=== PATIENT | male | born 1980 | race Caucasian/White ===

== ENCOUNTER 2025-03-02 14:17 | Emergency (ER) | payer BC, SELFPAY ==
--- OUTSIDE RECORDS SUMMARY | 2025-03-02 14:19 | XMS_ITS | Clinical Summary ---
Author Organization [facility] Address [address] [place] [id number] Care Team Providers Care Grades 1 Thru 6 Home Teacher Name Role Phone Jonh Goodwin MD Primary Care Provider [phone] Allergies No known active allergies Medications MedicationSigDispense QuantityRefillsLast FilledStart DateEnd DateStatus cholecalciferol (VITAMIN D) 2,000 unit capsule Indications:Diabetes mellitus type I (HC)Take 1 capsule by mouth once daily.0 02/23/2011ctive blood-glucose meter Indications:Type 1 diabetes mellitus without complication (HC)Dispense meter, test strips, lancets covered by pt ins. E11.65 IDDM type II, uncontrolled - Test 6 times/day. Reason: High A1C 1 Device 07/03/2016Active FreeStyle Aida 2 [place] Indications:Type 1 diabetes mellitus without complication (HC)To be used to read blood sugars per closer on's directions. 1 Each 03/31/2021ctive Contour Next Test Strips strip Indications:Type 1 diabetes mellitus without complication (HC)USE TO TEST SIX TIMES DAILY DIRECTED 600 Each ctive pen needle, diabetic (BD Insulin Pen Needle UF) 31 gauge x 5/16 Indications:Type 1 diabetes mellitus without complication (HC)As directed. For administering insulin at home.please use correct needle for his pen 100 Each 3Active FreeStyle Aida 2 Plus Sensor for continuous blood glucose monitor (CGM) Indications:Type 1 diabetes mellitus without complications (HC)To be used to read blood sugars. Change sensor every 14 days as directed. 6 Each 5Active FreeStyle Aida 2 Sensor Indications:Type 1 diabetes mellitus without complications (HC)To be used to read blood sugars per closer on's directions. 6 Each 5Active Lantus Solostar U-100 Insulin 100 unit/mL (3 mL) pen Indications:Type 1 diabetes mellitus without complications (HC)Inject 32 units subcutaneous before bedtime. Product desired: LANTUS SOLOSTAR 30 mL 5Active insulin aspart (U-100) (NOVOLOG FLEXPEN) 100 unit/mL (3 mL) pen Indications:Type 1 diabetes mellitus without complications (HC)INJECT 5 TO 8 UNITS THREE TIMES A DAY WITH MEALS. MAX OF 30 UNITS PER DAY DIRECTED 30 mL 5Active PARoxetine (PAXIL) 10 mg tablet Indications:Agoraphobia with panic disorderTake 1 Tablet (10 mg) by mouth once daily in the morning. 90 Tablet 5Active LORazepam (ATIVAN) 0.5 mg tab Indications:Agoraphobia with panic disorderTAKE ONE TABLET (0.5 MG) BY MOUTH EVERY 6 HOURS NEEDED FOR ANXIETY . 15 Tablet 5Active rosuvastatin (CRESTOR) 10 mg tablet Indications:Hyperlipidemia, unspecified hyperlipidemia typeTake 1 Tablet (10 mg) by mouth at bedtime. 90 Tablet 5Active traZODone (DESYREL) 50 mg tablet Indications:Insomnia, idiopathicTake 1 Tablet (50 mg) by mouth at bedtime. 90 Tablet 5Active traZODone (DESYREL) 50 mg tablet Indications:Insomnia, idiopathicTake 1 Tablet (50 mg) by mouth at bedtime. 90 Tablet Discontinued(Reorder (E-cancel not sent)) insulin aspart, U-100, (NovoLOG Flexpen U-100 Insulin) 100 unit/mL (3 mL) pen Indications:Type 1 diabetes mellitus without complication (HC)INJECT 6 TO 7 UNITS UNDER THE SKIN THREE TIMES A DAY WITH MEALS. MAX OF 20 UNITS PER DAY DIRECTED 30 mL Discontinued LORazepam (ATIVAN) 0.5 mg tab Indications:Agoraphobia with panic disorderTAKE ONE TABLET (0.5 MG) BY MOUTH EVERY 6 HOURS NEEDED FOR ANXIETY . 15 Tablet Discontinued(Reorder (E-cancel not sent)) FreeStyle Aida 2 Sensor Indications:Type 1 diabetes mellitus without complication (HC)USE TO READ BLOOD SUGARS PER CHIEF OF PRODUCTION'S DIRECTIONS REPLACING EVERY 14 DAYS DIRECTED 6 Each /[id number]/Discontinued(Other - add note to specify (E-cancel not sent)) Lantus Solostar U-100 Insulin 100 unit/mL (3 mL) pen Indications:Type 1 diabetes mellitus without complication (HC)INJECT 27 UNITS SUBCUTANEOUS BEFORE BEDTIME 60 mL Discontinued(*Medication adjustment) PARoxetine (PAXIL) 10 mg tablet Indications:Agoraphobia with panic disorderTake 1 Tablet (10 mg) by mouth once daily in the morning. 90 Tablet Discontinued rosuvastatin (CRESTOR) 10 mg tablet Indications:Hyperlipidemia, unspecified hyperlipidemia typeTake 1 Tablet (10 mg) by mouth at bedtime. 90 Tablet Discontinued(Reorder (E-cancel not sent)) insulin aspart (U-100) (NOVOLOG FLEXPEN) 100 unit/mL (3 mL) pen Indications:Type 1 diabetes mellitus without complications (HC)INJECT 6 TO 7 UNITS UNDER THE SKIN THREE TIMES A DAY WITH MEALS. MAX OF 20 UNITS PER DAY DIRECTED 30 mL Discontinued(*Medication adjustment) PARoxetine (PAXIL) 10 mg tablet Indications:Agoraphobia with panic disorderTAKE ONE TABLET (10 MG) BY MOUTH ONCE DAILY IN THE MORNING 30 Tablet Discontinued(Reorder (E-cancel not sent)) Active Problems ProblemNoted DateDiagnosed DateVitamin D otdctzbzqi64/08/2018Diabetes mellitus type I09/29/2009goraphobia with panic rtgdcqyj22/19/2010 Overview (02/07/2024): Treated with paroxetine and lorazepam. Previously used frequent lorazepam. 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 25 pills every 3 months. Encounters DateTypeDepartmentCare UikzKboasycccfg23/18/2025 9:50 AM CSTOffice Visit [facility] [address] [place] [address] Jonh Goodwin MD Wuacuern71/18/0558Dbxndq38/29/2025Refill [facility] [address] [place] [address] Jonh Goodwin MD Refill Request (Paroxetine)02/05/2025Telephone [facility] [address] [place] [address] Jonh Goodwin MD Questions (FreeStyle Aida 2 Plus Sensor for continuous blood glucose monitor (CGM))02/02/2025Refill [facility] [address] [place] [address] Jonh Goodwin MD Refill Request (Freestyle Aida 2 Sensor)01/30/2025Refill [facility] [address] [place] [address] Jonh Goodwin MD Refill Request (Insulin Aspart (U-100))from Last 3 Months Immunizations ImmunizationAdministration DatesNext DueCOVID-19 vaccine (E-Sign 30mcg/0.3mL) MD EMERITAV03/31/2021,07/29/2020,07/08/2020,1530NTlM37/08/1982 Hepatitis B (Adult)02/28/2025,09/09/2023,01/23/2014Influenza, IIV3 (Age >=3 years)12/30/2009MMR11/11/1992,02/18/1982Polio Virus, Rttwtagjrxz22/08/1982Td (Age >=7 Years)09/25/2009,08/26/1988Tdap04/06/2019 Family History Medical HistoryRelationNameCommentsOtherMaternal Grandmotherautoimmune disease RelationNameStatusCommentsMaternal Grandmother Social History Tobacco UseTypesPacks/DayYears UsedDateSmoking Tobacco: FormerSmokeless Tobacco: Never Tobacco Cessation:Counseling Given: Yes Alcohol UseStandard Drinks/WeekCommentsNo0 (1 standard drink = 0.6 oz pure alcohol)none since gnuveal9658PBM-8YvajeqGwhp RecordedPHQ-2 TOTAL SCORE1 02/28/2025Social ConnectionsAnswerDate RecordedDo you often feel lonely or isolated from those around you?lcohol UseAnswerDate RecordedHow often do you have a drink containing alcohol?verage Number of Drinks Not on file02/28/2025Frequency of Binge DrinkingNot on file02/28/2025Financial Resource StrainAnswerDate RecordedDifficulty of Paying Living Expenses3 11/28/2023ifficulty of Paying Living ExpensesNot on file11/28/2023Food InsecurityAnswerDate RecordedDo you worry your food will run out before you are able to buy more?Transportation NeedsAnswerDate RecordedDoes lack of transportation keep you from medical appointments?oes lack of transportation keep you from work, meetings or getting things that you need?1 11/28/2023Housing StabilityAnswerDate RecordedWhat is your housing situation today?UtilitiesAnswerDate RecordedDo you have trouble paying for utilities (for example, heat, electricity, water, phone)?Sex and Gender InformationValueDate RecordedSex Assigned at BirthNot on fileLegal Sex Male03/27/2012 5:25 AM CSTGender IdentityNot on fileSexual OrientationNot on file Last Filed Vital Signs Vital SignReadingTime TakenCommentsBlood Oddemlkp918/1215602/28/2025 9:56 AM CHILDREN'S ENTERTAINER Jtlri231402/28/2025 9:56 AM VMTPkfktyywgor13.4 ??C (97.6 ??F)07/11/2020 2:31 PM CDTRespiratory Fbkg4639 10:34 AM CDTOxygen Axomflrhtu59%02/28/2025 9:54 AM CSTInhaled Oxygen Concentration--Vwgowf39.4 kg (181 lb 9.6 oz)02/28/2025 9:54 AM DPSUhzzos563.5 cm (5' 11.06)02/28/2025 9:54 AM CSTBody Mass Index25.28 02/28/2025 9:54 AM CHILDREN'S ENTERTAINER Plan of Treatment DateTypeDepartmentCare Team (Latest Contact Info)Qtkbjwjosee57/19/2026 9:00 AM CDTOffice Visit [facility] [address] [place] [address] Jonh Goodwin MD [address] [place] [address] Health MaintenanceDue DateLast DoneCommentsPneumococcal series for age 6-49 (1 of 2 - PCV)07/17/1999HPV series for age 9-45 (1 - 3-dose SCDM series)07/17/2007 COVID-19 vaccine series ( season), 07/29/2020, 07/08/2020, Additional history existsInfluenza Vaccine (#1) BMI (ht and wt on same day) for age 18+6105/01/2024, 03/31/2021, 03/25/2020, Additional history existsDepression screening for age 12+02/28/2026 02/28/2025, 02/07/2024, 12/01/2021, Additional history existsTetanus booster , 06/08/2011 (Completed outside of [facility]), 09/25/2009, Additional history existsLipids for age 35-441, 02/07/2024, 11/26/2022, Additional history existsHepatitis C screening for age 18-79 Gzrbvekky31/01/2022HIV for age 15-90Xbufispfj45/15/2023Hepatitis B series for 19+Mthjlnaxc86/18/2025, 09/09/2023, 01/23/2014 Procedures Procedure NamePriorityDate/TimeAssociated DiagnosisCommentsURINE ALBUMIN TO CREATININE RATIO, IBLLDVOssemae90/18/2025 9:46 AM CHILDREN'S ENTERTAINER Type 1 diabetes mellitus without complications (HC) LIPID QIELBNnrflmt25/18/2025 9:46 AM CHILDREN'S ENTERTAINER Hyperlipidemia, unspecified hyperlipidemia type BASIC METABOLIC CKLDHSrxxunj19/18/2025 9:46 AM CHILDREN'S ENTERTAINER Type 1 diabetes mellitus without complications (HC) ANTI HIV 1/2Add On11/26/2022 1:56 PM CDT Screening for HIV (human immunodeficiency virus) ANTI HCVAdd On01/12/2022 1:52 PM CDT Need for hepatitis C screening test from Last 3 Months or Most Recently Relevant to Health Maintenance Results * URINE ALBUMIN TO CREATININE RATIO, RANDOM (02/28/2025 9:46 AM CHILDREN'S ENTERTAINER)Component ValueRef RangeTest MethodAnalysis TimePerformed AtPathologist Signature ALBUMIN, URINE0.9See Note: mg/dL03/01/2025 12:24 PM [email or web address] DIAGNOSTICS Comment: Reference Range: Reference Range Not established CREATININE, RANDOM AMHLZ8381 - 320 mg/dL03/01/2025 12:24 PM CSTQUEST DIAGNOSTICS ALBUMIN/CREATININE RATIO, RANDOM URINE10<30 mg/g creat105/02/2024 12:24 PM CHILDREN'S ENTERTAINER [email or web address] DIAGNOSTICSComment: The ADA defines abnormalities in albumin excretion as follows: Albuminuria Category ?Result (mg/g creatinine) Normal to Mildly increased <30 Moderately increased ? 30-299 Severely increased > OR = 300 The ADA recommends that at least two of three specimens collected within a 3-6 month period be abnormal before considering a patient to be within a diagnostic category. Specimen (Source)Anatomical Location / LateralityCollection Method / Volume Collection TimeReceived TimeUrineURINE SPECIMEN / UnknownNon-Blood / Unknown 02/28/2025 9:46 AM CST02/28/2025 9:46 AM CHILDREN'S ENTERTAINER Narrative Authorizing ProviderResult TypeResult StatusJonh Goodwin MDURINEFinal ResultPerforming OrganizationAddressCity/State/ZIP CodePhone Number [facility] [address] [place] [address], * (ABNORMAL) LIPID PANEL (02/28/2025 9:46 AM CHILDREN'S ENTERTAINER)ComponentValueRef RangeTest MethodAnalysis TimePerformed AtPathologist SignatureCHOLESTEROL, PLRLN068<200 mg/dL03/01/2025 3:07 AM CSTQUEST BMMVPMHEYHTOEMPPLNNHMTDM156(H)<150 mg/dL 03/01/2025 3:07 AM CSTQUEST DIAGNOSTICSComment: If a non-fasting specimen was collected, consider repeat triglyceride testing on a fasting specimen if clinically indicated. Caleb et al. J. of Clin. Lipidol. 2015;9:129-169. There is increased risk of pancreatitis when the triglyceride concentration is very high (> or = 500 mg/dL, especially if > or = 1000 mg/dL). Caleb et al. J. of Clin. Lipidol. 2015;9:129-169. HDL TMETNSSNMTU03> OR = 40 mg/dL03/01/2025 3:07 AM CSTQUEST DIAGNOSTICSNON HDL EMOSJVDBTIF570(H)<130 mg/dL (calc)03/01/2025 3:07 AM CST[facility] Comment: For patients with diabetes plus 1 major ASCVD risk factor, treating to a non-HDL-C goal of <100 mg/dL (LDL-C of <70 mg/dL) is considered a therapeutic option. CHOL/HDLC RATIO4.7<5.0 (calc)03/01/2025 3:07 AM CSTQUEST DIAGNOSTICS LDL-CHOLESTEROLSEE NOTEmg/dL (calc)03/01/2025 3:07 AM CST[facility] Comment: LDL cholesterol not calculated. Triglyceride levels greater than 400 mg/dL invalidate calculated LDL results. Reference range: <100 Desirable range <100 mg/dL for primary prevention; <70 mg/dL for patients with CHD or diabetic patients with > or = 2 CHD risk factors. LDL-C is now calculated using the Rebeca calculation, which is a validated novel method providing better accuracy than the Friedewald equation in the estimation of LDL-C. Boubacar ALVARES et al. HEATH. 2013;310(19): 7220-6018 (http://education.[employer]/faq/GNS896) Specimen (Source)Anatomical Location / LateralityCollection Method / Volume Collection TimeReceived TimeBloodBLOOD SPECIMEN / UnknownQuest Collect / Unknown 02/28/2025 9:46 AM CST02/28/2025 9:46 AM CHILDREN'S ENTERTAINER Narrative Authorizing ProviderResult TypeResult StatusJonh Chacho Goodwin MDCHEMISTRYFinal ResultPerforming OrganizationAddressCity/State/ZIP CodePhone Number [facility] [address] [place] [address], * (ABNORMAL) BASIC METABOLIC PANEL (02/28/2025 9:46 AM CHILDREN'S ENTERTAINER)ComponentValueRef RangeTest MethodAnalysis TimePerformed AtPathologist BbmrarczuKZJDMV542315 - 146 mmol/L105/02/2024 3:07 AM CSTQUEST DIAGNOSTICSPOTASSIUM4.43.5 - 5.3 mmol/L 03/01/2025 3:07 AM CSTQUEST DIAGNOSTICSCARBON HHKXEGP6949 - 32 mmol/L 03/01/2025 3:07 AM CSTQUEST JXLIZELOEZSKDQVLAY079(H)65 - 99 mg/dL03/01/2025 3:07 AM CSTQUEST DIAGNOSTICSComment: ? Fasting reference interval For someone without known diabetes, a glucose value >125 mg/dL indicates that they may have diabetes and this should be confirmed with a follow-up test. CALCIUM9.58.6 - 10.3 mg/dL03/01/2025 3:07 AM CSTQUEST DIAGNOSTICSCREATININE0.89 0.60 - 1.29 mg/dL03/01/2025 3:07 AM CSTQUEST DIAGNOSTICSBUN/CREATININE RATIOSEE NOTE:6 - 22 (calc)03/01/2025 3:07 AM CSTQUEST DIAGNOSTICSComment: ?? Not Reported: BUN and Creatinine are within ?? reference range. ? UNRZ299> OR = 60 mL/min/1.32b02503/01/2025 3:07 AM CSTQUEST DIAGNOSTICSUREA NITROGEN (BUN)97 - 25 mg/dL03/01/2025 3:07 AM CSTQUEST DIAGNOSTICSELECTROLYTE MSPNLIY20 - 17 mmol/L (calc)03/01/2025 3:07 AM CSTQUEST SURADSPQDJJJKDCZHMZ93175 - 110 mmol/L105/02/2024 3:07 AM CSTQUEST DIAGNOSTICSSpecimen (Source)Anatomical Location / LateralityCollection Method / VolumeCollection TimeReceived TimeBlood BLOOD SPECIMEN / UnknownQuest Collect / Cwasvbv8502/28/2025 9:46 AM CST02/28/2025 9:46 AM CHILDREN'S ENTERTAINER Narrative Authorizing ProviderResult TypeResult StatusJonh Goodwin MDCHEMISTRYFinal ResultPerforming OrganizationAddressCity/State/ZIP CodePhone Number [facility] [address] [address], * ANTI HIV 1/2 [86337.0] (11/26/2022 1:56 PM CDT)ComponentValueRef RangeTest MethodAnalysis TimePerformed AtPathologist SignatureHIV-1/HIV-2 SCREEN Dap-IrsnrgkfBuw-Kspiulye88/16/2023 4:39 AM CDBEACHAM MEMORIAL HOSPITALCENTRAL LABORATORYComment:HIV-1 p24 and HIV-1/HIV-2 Ab Not Detected.Specimen (Source) Anatomical Location / LateralityCollection Method / VolumeCollection Time Received TimeBloodBLOOD SPECIMEN / UnknownVenipuncture / Dlnczuh1111/26/2022 1:56 PM CDT11/26/2022 1:58 PM CDT Narrative Authorizing ProviderResult TypeResult StatusJonh Goodwin [facility] OUTSFinny ResultPerforming OrganizationAddressty/State/ZIP CodePhone Number [facility] [address] * ANTI HCV (01/12/2022 1:52 PM CDT)ComponentValueRef RangeTest MethodAnalysis TimePerformed AtPathologist SignatureHEPATITIS C ANTIBODYNon-Reactive Non-Twrvnoll85/02/2022 12:59 PM CDBEACHAM MEMORIAL HOSPITALCENTRAL LABORATORY Comment:Antibodies to HCV not detected; does not exclude the possibility of exposure to HCV.Specimen (Source)Anatomical Location / LateralityCollection Method / VolumeCollection TimeReceived TimeBloodBLOOD SPECIMEN / Unknown Venipuncture / Xspoavs6901/12/2022 1:52 PM CDT103/14/2021 1:54 PM CDT Narrative Authorizing ProviderResult TypeResult StatusJonh Goodwin [facility] OUTSFinal ResultPerforming OrganizationAddressCity/State/ZIP CodePhone Number [facility] [address] [place] [address], from Last 3 Months or Most Recently Relevant to Health Maintenance Insurance Care Teams Team MemberRelationshipSpecialtyStart DateEnd Date Jonh Goodwin MD [facility] [place] [address] PCP - GeneralFamily Nvysuwwa70/20/15
[2025-03-02 14:20] VITALS: BP 161/109; PULSE 98; RESP 18; TEMP 36.5; O2SAT 98; BMI 25.1
--- NOTE | 2025-03-02 14:37 | ED.GENADULT ---
HPI - General Adult General Date Seen: 03/02/25 Chief complaint: Hypertension Stated complaint: High Blood Pressure Time Seen by Provider: 03/02/25 14:35 History of Present Illness HPI narrative: 44-year-old gentleman with a history of diabetes (on Lantus 32 units q.h.s. and NovoLog 5-8 units with each meal, t.i.d.) presenting to the ER today concern with high blood pressure. He also has history of anxiety (on Paxil) He does not have a formal diagnosis of high blood pressure but he was seen in the primary care clinic at [facility], by Dr. Goodwin 2 days ago on 02/28. At that visit blood pressure was 160/97. Per Dr. Goodwin notes, hypertension was noted but attributed to his life stress. Patient did have labs including normal BUN and creatinine. He also had elevated triglycerides and lipid screening. Patient notes that he did general was feeling okay up until is visit on . He does note a little bit more fatigue and difficulty wake up in the morning but no other headaches, chest pain, blurry vision, trouble breathing, peripheral edema, stroke symptoms. Ever since having his blood pressure measured the of the day he has been more worried about it. He has been monitoring it carefully at home. He measured his blood pressure several times last night. First blood pressure reading she gave him a systolic of 175. He rejected again about an hour later and the systolic was in the 180s, and he then rechecked of 3rd time in the systolic in gone up into the 190s. At work today (he works at [employer]) he had 1 of the nurses check his blood pressure and was apparently 200 over something (He does not remember the diastolic). His nurse told him come here. He is not having any headache. No blurry vision or vision loss. No swelling in his legs. No trouble breathing. No cough. No chest pain. No numbness or weakness or tingling in his arms or legs. Related Data Home Medications ?Medication ?Instructions ?Recorded ?Confirmed insulin aspart U-100 100 unit/mL subcut 03/02/25 (3 mL) subcutaneous pen insulin glargine 100 unit/mL (3 unit subcut 03/02/25 mL) subcutaneous pen (Lantus Solostar U-100 Insulin) paroxetine HCl 10 mg tablet 10 mg PO DAILY 03/02/25 03/02/25 rosuvastatin 10 mg tablet 10 mg PO QPM 03/02/25 03/02/25 Previous Rx's ?Medication ?Instructions ?Recorded lisinopril 20 mg tablet 20 mg PO DAILY #14 tabs 03/02/25 Allergies Allergy/AdvReac Type Severity Reaction Status Date / Time No Known Drug Allergies Allergy Verified 03/02/25 14:25 [facility] Social History Smoking Status: Former smoker How often do you have a drink containing alcohol: never AUDIT-C Alcohol total score: 0 Non-prescribed substance use: marijuana (any form) Exam Narrative: Exam Narrative: Constitutional: Appears well-developed and well-nourished. Alert. Conversant. Non toxic. HENT: Head: Atraumatic. Nose: Nose normal. Mouth/Throat: Oral mucosa is clear and moist. no trismus. Pharynx normal. Tonsils symmetric. No tonsillar enlargement, erythema, or exudate. Eyes: Conjunctivae normal. EOM normal. Pupils equal, round, and reactive to light. No scleral icterus. Neck: Normal range of motion. Neck supple. No tracheal deviation present. Cardiovascular: Normal rate, regular rhythm. No gallop. No friction rub. No murmur heard. Symmetric radial artery pulses Pulmonary/Chest: Effort normal. No stridor. No respiratory distress. No wheezes. No rales. No rhonchi . No tenderness. Abdominal: Soft. Bowel sounds normal. No distension. No mass. No tenderness. No rebound. No guarding. Musculoskeletal: RUE: Normal range of motion. No tenderness. No deformity LUE: Normal range of motion. No tenderness. No deformity RLE: Normal range of motion. No edema. No tenderness. No deformity LLE: Normal range of motion. No edema. No tenderness. No deformity Lymph: No cervical adenopathy. Neurological: Alert and oriented to person, place, and time. Normal strength. CN II-VII intact. No sensory deficit. GCS eye subscore is 4. GCS verbal subscore is 5. GCS motor subscore is 6. Normal coordination Skin: Skin is warm and dry. No rash noted. No pallor. Normal capillary refill. Psychiatric: Normal mood. Polite. He does endorse feeling nervous about his blood pressure. Normal affect. Const: Vital Signs, click to edit/add: Vital Signs - 24 hr 03/02/25 14:20 03/02/25 15:39 03/02/25 16:39 Temperature 97.7 F Pulse Rate [Pulse Oximeter] 98 79 Respiratory Rate 18 Blood Pressure [Ri ght Upper Arm] 161/109 H 173/105 H 177/99 H Pulse Oximetry 98 Oxygen Delivery Me thod Room Air Course Vital Signs Vital signs: Initial Vital Signs Temperature 97.7 F 03/02/25 14:20 Temperature Source Temporal Artery Scan 03/02/25 14:20 Pulse Rate 98 03/02/25 14:20 Respiratory Rate 18 03/02/25 14:20 Blood Pressure 161/109 H 03/02/25 14:20 Blood Pressure Mean 126 H 03/02/25 14:20 Blood Pressure Position Sitting 03/02/25 14:20 Pulse Oximetry 98 03/02/25 14:20 Oxygen Delivery Method Room Air 03/02/25 14:20 Vital Signs Temperature 97.7 F 03/02/25 14:20 Pulse Rate 98 03/02/25 14:20 Respiratory Rate 18 03/02/25 14:20 Blood Pressure 161/109 H 03/02/25 14:20 Pulse Oximetry 98 03/02/25 14:20 Oxygen Delivery Method Room Air 03/02/25 14:20 Temperature 97.7 F 03/02/25 14:20 Pulse Rate 79 03/02/25 15:39 Respiratory Rate 18 03/02/25 14:20 Blood Pressure 177/99 H 03/02/25 16:39 Pulse Oximetry 98 03/02/25 14:20 Oxygen Delivery Method Room Air 03/02/25 14:20 Medications Administered Medications: Discontinued Medications Generic Name Dose Route Start Last Admin Trade Name Ripq PRN Reason Stop Dose Admin Lisinopril 20 mg 03/02/25 16:31 03/02/25 16:39 Lisinopril 20 Mg Tablet PO 03/02/25 16:32 20 mg ONCE ONE Administration Medical Decision Making MDM Narrative Medical decision making narrative: This patient presents for evaluation of elevated blood pressure. He does not have any known history of hypertension but did have blood pressure readings elevated his PCP visit 2 days ago. He was checking his blood pressure lot last night and again asked his nurses at his employer to check it today. His nurses today is job noted his blood pressure was over 200 systolic and told to come immediately to the ER with concern for stroke. He is not actually having any stroke symptoms. No concerning symptoms of chest pain , severe headache, neurologic deficits. The workup here is negative and the patient does not have any clinical, laboratory, ecg or historical signs of end-organ dysfunction. There is no signs of hypertensive emergency or urgency. Supportive outpatient management is therefore indicated with close follow-up of primary care physician. Given data obtained here in ED, will initiate lisinopril 20 mg daily for therapy at this time and encouraged serial blood pressure monitoring at home to aid primary in decision making regarding hypertension. He will follow-up with his primary care provider the [facility] within 1-2 weeks. We discussed that there is low ,but not 0 risk ,that he could develop and organ damage and if he does develop any chest pain, stroke symptoms, or other concerns, he will return to the ER immediately. Lab Data Labs: Lab Results 03/02/25 Range/Units 15:10 POC Troponin I High Sensi 4.9 (2.9-28.0) pg/mL ECG Data Attestation: I personally reviewed and interpreted this ECG as follows: Interpretation: Normal sinus rhythm Rate 71 LA interval 152 Normal QRS axis. No pathologic Q-waves No ST segment elevation or depression QTC 378, QTC 410 Discharge Plan Discharge Clinical Impression: Hypertension Patient Disposition: Home, Self-Care Condition: Stable Instructions: Hypertension (ED) Additional Instructions: As we discussed, please monitor your blood pressure once per day and keep a record. Follow-up with your doctor the [facility] within the next 5-10 days for and a recheck. Your doctor may need to make adjustments to your blood pressure medications to help bring it down to the goal. If you have worsening symptoms such as chest pain, trouble breathing, severe headache, blurry vision or vision loss, numbness or weakness in your arms and legs, numbness or droopiness in your face, swelling in your legs, please return to the ER or see your doctor immediately. Prescriptions: New lisinopril 20 mg tablet 20 mg PO DAILY Qty: 14 2RF No Action paroxetine HCl 10 mg tablet 10 mg PO DAILY insulin aspart U-100 100 unit/mL (3 mL) insulin pen SUBCUT Patient Comments: [NO ORIGINAL SIG] rosuvastatin 10 mg tablet 10 mg PO QPM insulin glargine [Lantus Solostar U-100 Insulin] 100 unit/mL (3 mL) insulin pen subcut Follow Up/Referrals: Jonh Goodwin MD [Primary Care Provider, Family Practice] Stand Alone Forms: DGIT Info Instructions
[2025-03-02 15:39] VITALS: BP 173/105; PULSE 79
[2025-03-02 16:39] VITALS: BP 177/99
== END 2025-03-02 16:53 | disposition home or self-care (01) ==
PROVIDERS: Emergency Provider Emergency Medicine; PCP Surgery
DX: I10 Essential (primary) hypertension (principal)
CPT/HCPCS: 36415; 84484; 93005; 99283; 99284; A9270